=== PATIENT | female | born 1960 | race Caucasian/White ===

== ENCOUNTER → 2016-11-28 | Outpatient (CLI) | payer MEDICAID | LOC: FIMAGING 14:36 | PROVIDERS: ATTEND Nurse Practitioner Women's Health | DX: N63 Unspecified lump in breast (principal) | CPT/HCPCS: G0204 ==

== ENCOUNTER → 2018-06-05 | Outpatient (CLI) | payer MEDICAID | LOC: FIMAGING 13:44 | PROVIDERS: ATTEND Physician Assistant | DX: Z12.31 Encounter for screening mammogram for malignant neoplasm of breast (principal); Z13.820 Encounter for screening for osteoporosis; M85.89 Other specified disorders of bone density and structure, multiple sites; E28.39 Other primary ovarian failure; Z78.0 Asymptomatic menopausal state; Z82.62 Family history of osteoporosis ==

== ENCOUNTER → 2018-07-16 | Outpatient (CLI) | payer MEDICAID | LOC: FIMAGING 13:31 | PROVIDERS: ATTEND Physician Assistant Medical | DX: S49.90XA Unspecified injury of shoulder and upper arm, unspecified arm, initial encounter (principal); R20.2 Paresthesia of skin ==